=== PATIENT | female | born 1950 | race Caucasian/White ===

== ENCOUNTER 2021-03-17 13:21 | Outpatient (CLI) | payer MEDICARE | END 2021-03-17 13:22 | disposition home or self-care (01) | LOC: BICCT 13:21 | PROVIDERS: ATTEND Internal Medicine Hematology & Oncology | DX: Z12.2 Encounter for screening for malignant neoplasm of respiratory organs (principal); F17.210 Nicotine dependence, cigarettes, uncomplicated; N63.20 Unspecified lump in the left breast, unspecified quadrant; I25.10 Atherosclerotic heart disease of native coronary artery without angina pectoris; I70.0 Atherosclerosis of aorta; J43.2 Centrilobular emphysema | CPT/HCPCS: 71271 ==

== ENCOUNTER 2021-04-06 11:21 | Outpatient (CLI) | payer MEDICARE ==
[2021-04-06 12:27] LABS: Hemoglobin 12.3 g/dL (12.0-15.5); Mean Corpuscular HGB CONC 30.8 g/dL (32.0-36.0); Mean Corpuscular Hemoglobin 28.8 pg (27.0-33.0); Mean Corpuscular Volume 93.7 fl (81.6-98.3); Mean Platelet Volume 9.7 fl (7.4-10.4); Platelet Count 233 10x3/uL (150-450); RBC Distribution Width 14.6 % (11.5-14.5); Red Blood Cell (RBC) Count 4.27 10x6/uL (3.90-5.03); White Blood Cell (WBC) Count 8.5 10x3/uL (3.5-10.5)
[2021-04-06 12:35] LABS: Anion Gap 14 mmol/L (10-20); BUN (Urea Nitrogen) 22 mg/dL (9.8-20.1); Calc. Creatinine Clearance 0 mL/min (70-130); Calcium 9.5 mg/dL (7.8-10.44); Carbon Dioxide 24 mmol/L (23-31); Chloride 107 mmol/L (98-107); Glucose 88 mg/dL (80-115); Potassium 4.9 mmol/L (3.5-5.1); Sodium 140 mmol/L (136-145)
[2021-04-06 18:23] LABS: SARS-CoV-2 PCR by NAA Not Detected (NotDetected)
== END 2021-04-06 11:22 | disposition home or self-care (01) ==
LOC: LABBT 11:21
PROVIDERS: ATTEND Specialist
DX: Z01.818 Encounter for other preprocedural examination (principal); C50.912 Malignant neoplasm of unspecified site of left female breast; Z20.822 Contact with and (suspected) exposure to COVID-19
CPT/HCPCS: 80048; 85027; U0003; U0005; 93005; 93010

== ENCOUNTER 2021-04-11 07:12 | Day surgery (SDC) | payer MEDICARE ==
[2021-04-10 10:31] VITALS: BMI 28.3
[2021-04-11] MEDS ORDERED: Ketorolac Tromethamine 30 MG/ML VIAL ONE (09:37)
[2021-04-11] MEDS ORDERED: Acetaminophen 500 MG TAB ONE (09:37)
[2021-04-11] MEDS ORDERED: Midazolam HCl 2 mg/2 ml Vial ONE (10:50)
[2021-04-11] MEDS ORDERED: Dexamethasone 20 MG/5 ML VIAL ONE (11:24)
[2021-04-11] MEDS ORDERED: Ondansetron PF 4 MG/2 ML Vial ONE (11:24)
[2021-04-11] MEDS ORDERED: PROPOFOL 200 MG/20 ML VIAL ONE (11:24)
[2021-04-11] MEDS ORDERED: ePHEDrine Sulfate 50 MG/10 ML VIAL ONE (11:24)
[2021-04-11] MEDS ORDERED: Lidocaine 1% w/Epinephrine 1:100K 20 ML VIAL ONE (11:50)
[2021-04-11] MEDS ORDERED: Bupivacaine 0.25% HCL 30 ML VIAL ONE (11:50)
[2021-04-11] MEDS ORDERED: Isosulfan Blue 50 MG/5 ML VIAL ONE (11:50)
[2021-04-11] MEDS ORDERED: Dexmedetomidine 200 MCG/2 ML VIAL ONE (12:00)
[2021-04-11] MEDS ORDERED: Ketamine 50 MG/ML (10ML VIAL) ONE (12:00)
[2021-04-11] MEDS ORDERED: Fentanyl 100 MCG/2 ML VIAL ONE (12:09)
== END 2021-04-11 16:10 | disposition home or self-care (01) ==
LOC: SDC 07:12
PROVIDERS: ATTEND Specialist
PROC: 0HBU0ZZ Excision of Left Breast, Open Approach (ICD-10-PCS; principal; 2021-04-11)
PROC: 07B60ZX Excision of Left Axillary Lymphatic, Open Approach, Diagnostic (ICD-10-PCS; 2021-04-11)
DX: C50.412 Malignant neoplasm of upper-outer quadrant of left female breast (principal); C77.3 Secondary and unspecified malignant neoplasm of axilla and upper limb lymph nodes; F17.210 Nicotine dependence, cigarettes, uncomplicated; Z17.0 Estrogen receptor positive status [ER+]; Z79.899 Other long term (current) drug therapy
CPT/HCPCS: 19301; 38525; 38900; 76098; 78195; 88307; 88342; A9541; Q9968; J0690; J1100; J1885; J2250; J2405; J2704; J3010; S0020

== ENCOUNTER 2021-08-02 14:10 | Outpatient (CLI) | payer MEDICARE | END 2021-08-02 14:11 | disposition home or self-care (01) | LOC: BICMAMMO 14:10 | PROVIDERS: ATTEND Internal Medicine Hematology & Oncology | DX: Z13.820 Encounter for screening for osteoporosis (principal); N95.8 Other specified menopausal and perimenopausal disorders; M85.852 Other specified disorders of bone density and structure, left thigh; M85.851 Other specified disorders of bone density and structure, right thigh | CPT/HCPCS: 77080 ==

== ENCOUNTER 2022-08-23 13:43 | Outpatient (CLI) | payer OTHER | END 2022-08-23 13:44 | disposition home or self-care (01) | LOC: BICMAMMO 13:43 | PROVIDERS: ATTEND Internal Medicine Hematology & Oncology | DX: Z13.820 Encounter for screening for osteoporosis (principal); C50.412 Malignant neoplasm of upper-outer quadrant of left female breast; F17.210 Nicotine dependence, cigarettes, uncomplicated; T38.6X5A Adverse effect of antigonadotrophins, antiestrogens, antiandrogens, not elsewhere classified, initial encounter; M85.852 Other specified disorders of bone density and structure, left thigh | CPT/HCPCS: 77080 ==

== ENCOUNTER 2024-08-06 09:49 | Outpatient (CLI) | payer MEDICARE, MEDICAID | END 2024-08-06 09:50 | disposition home or self-care (01) | LOC: BICMAMMO 09:49 | PROVIDERS: ATTEND Specialist | DX: Z12.31 Encounter for screening mammogram for malignant neoplasm of breast (principal); N64.89 Other specified disorders of breast; Z80.3 Family history of malignant neoplasm of breast; Z85.3 Personal history of malignant neoplasm of breast | CPT/HCPCS: 77063; 77067 ==

== ENCOUNTER 2024-08-12 08:29 | Outpatient (CLI) | payer MEDICARE, MEDICAID | END 2024-08-12 08:30 | disposition home or self-care (01) | LOC: BICMAMMO 08:29 | PROVIDERS: ATTEND Specialist | DX: N64.89 Other specified disorders of breast (principal) | CPT/HCPCS: 77065; G0279 ==

== ENCOUNTER 2024-11-12 08:23 | Outpatient (CLI) | payer MEDICARE, MEDICAID | END 2024-11-12 08:24 | disposition home or self-care (01) | LOC: RAD 08:23 | PROVIDERS: ATTEND Internal Medicine | DX: R06.00 Dyspnea, unspecified (principal) | CPT/HCPCS: 71046 ==